=== PATIENT | male | born 1975 | race Caucasian/White ===

== ENCOUNTER 2020-01-23 15:33 | Emergency (ER) | payer OTHER ==
[~2020-01-23] VITALS: Ht 182.9 cm; Wt 89.8 kg
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
--- NOTE | 2020-01-23 15:57 | NUR ---
DR BRO AT BEDSIDE FOR DIEUDONNE
--- NOTE | 2020-01-23 16:31 | NUR ---
RADIOLOGY AT BEDSIDE FOR L KNEE/ L TIB/FIB XRAY.
--- NOTE | 2020-01-23 17:21 | NUR ---
SLEEPING IN BED. EASILY AROUSABLE. ON MONITOR. STABLE VITALS.
--- NOTE | 2020-01-23 18:15 | NUR ---
RADIOLOGY AT BEDSIDE FOR CHEST XRAY.
--- NOTE | 2020-01-23 18:19 | NUR ---
PT TO RADIOLOGY FOR HEAD CT SCAN VIA [facility].
[2020-01-23 18:56] LABS: BASOPHILS # (AUTO) 0.1 /CMM (0.0-0.2); BASOPHILS % (AUTO) 0.7 % (0.0-2.0); EOSINOPHILS % (AUTO) 2.3 % (0.0-6.0); HEMATOCRIT 38 % (39-51); HEMOGLOBIN 12.3 g/dL (13.5-17.5); LYMPHOCYTES # (AUTO) 2.4 /CMM (0.8-4.8); LYMPHOCYTES % (AUTO) 29.6 % (20.0-44.0); MEAN CORPUSCULAR HGB CONC 33 g/dl (31.0-36.0); MEAN CORPUSCULAR VOLUME 83 fL (80-96); MONOCYTES # (AUTO) 0.5 /CMM (0.1-1.30); MONOCYTES % (AUTO) 5.5 % (2.0-12.0); NEUTROPHILS # (AUTO) 5.1 /CMM (1.8-8.9); NEUTROPHILS % (AUTO) 61.9 % (43.0-81.0); PLATELET COUNT (AUTO) 241 /CMM (150-450); RED BLOOD CELL COUNT(AUTO) 4.53 MIL/uL (4.5-6.0); WHITE BLOOD COUNT (AUTO) 8.2 K/uL (4.3-11.0)
--- NOTE | 2020-01-23 19:13 | NUR ---
REPORT GIVEN TO CORRIE GRAY FOR NORMA.
[2020-01-23 19:48] LABS: ALCOHOL, BLOOD < 3 mg/dL (0-0)
--- NOTE | 2020-01-23 20:07 | NUR ---
PER MD AWAITING CHEMISTRY. LAB WAS CALLED.
[2020-01-23 20:09] LABS: ALANINE AMINOTRANSFERASE 15 U/L (12-78); ALBUMIN 3.7 g/dL (3.4-5.0); ALKALINE PHOSPHATASE 62 U/L (46-116); ASPARTATE AMINOTRANSFERASE 18 U/L (15-37); BILIRUBIN,DIRECT 0.1 mg/dL (0.0-0.2); BILIRUBIN,TOTAL 0.3 mg/dL (0.2-1.0); CALCIUM, SERUM 9.3 mg/dL (8.5-10.1); CARBON DIOXIDE 29 mmol/L (21-32); CHLORIDE 104 mmol/L (98-107); CREATININE 0.9 mg/dL (0.6-1.3); GLUCOSE 104 mg/dL (74-106); POTASSIUM 3.8 mmol/L (3.5-5.1); SODIUM SERUM 141 mmol/L (136-145); TOTAL PROTEIN, SERUM 7.3 g/dL (6.4-8.2); UREA NITROGEN, BLOOD 15 mg/dL (7-18)
--- NOTE | 2020-01-23 20:32 | NUR ---
EMT at bedside for crutches and holly wrap
--- NOTE | 2020-01-23 20:44 | NUR ---
Pt ambulated through E.D. in crutches.
[2020-01-23 20:47] VITALS: BP 128/79
--- NOTE | 2020-01-23 20:47 | NUR ---
Patient discharged to home in stable condition. Written and verbal after care instructions given. Patient verbalizes understanding of instruction and RX. Pt ambulated with steady gait. Picked up by family member. vss.
== END 2020-01-23 21:00 | disposition home or self-care (01) ==
LOC: ER 16:21
DX: S89.81XA Other specified injuries of right lower leg, initial encounter (principal); S09.8XXA Other specified injuries of head, initial encounter; G62.9 Polyneuropathy, unspecified; R41.82 Altered mental status, unspecified; Z98.890 Other specified postprocedural states; V49.49XA Driver injured in collision with other motor vehicles in traffic accident, initial encounter; Y93.89 Activity, other specified; Y92.488 Other paved roadways as the place of occurrence of the external cause; Y99.8 Other external cause status
CPT/HCPCS: 36415; 70450-TC; 71045-TC; 73564-TC; 73590-TC; 80048-TC; 80076-TC; 80305; 85025-TC; 86850-TC; G0480